=== PATIENT | female | born 1985 | race Caucasian/White ===

== ENCOUNTER 2019-05-02 12:00 | Inpatient (IN) | payer BC ==
[~2019-05-02] VITALS: Ht 170.2 cm; Wt 129.0 kg
--- NOTE | 2019-06-06 13:47 | NUR ---
06/06/19 1347 Sheets,Daisha 1310 PT ARRIVED TO ROOM 105, PT AWAKE AND TALKING TO RN. VSS. PT REPORTS PAIN 3/10 AND TOLERABLE. 1315 BABY TO CHEST AND FBC RN AT BEDSIDE. SMALL CLOTS NOTED WITH FUNDAL MASSAGE. FBC RN AND MD AWARE.
--- NOTE | 2019-06-07 07:38 | OR ---
[facility] [address] [place], [place] [address] Signed DATE OF OPERATION: 06/06/2019 SURGEON: Mendoza Zaragoza MD PREOPERATIVE DIAGNOSIS: Term , previous section. POSTOPERATIVE DIAGNOSIS: Term , previous section. PROCEDURE: Repeat low transverse segment section. Delivery of live female infant. PROVIDER NETWORK ANALYST: Dr. Banegas. ANESTHESIA: Spinal. ESTIMATED BLOOD LOSS: 700 mL. COMPLICATIONS: None. DRAINS: Solorzano to bladder. FINDINGS: Normal uterus. Normal tubes and ovaries bilateral. Normal female . Weight 7 pounds 8 ounces. Apgars 8 and 9. DESCRIPTION OF PROCEDURE: The patient was brought to the operating room and placed in supine position. After adequate spinal anesthesia was obtained, was prepped and draped in usual sterile fashion. Solorzano catheter was placed in the bladder. A Pfannenstiel skin incision was made through previous surgical scar using a scalpel. Subcutaneous tissue was dissected with the Bovie. Any bleeding spots cauterized with the Bovie. The fascia was nicked with scalpel and extended in transverse fashion using curved scissors. The underlying abdominal musculature was bluntly and sharply from the fascia above and below Electronically Signed By: MENDOZA ZARAGOZA MD 06/07/19 0738 PATIENT NAME: LARS HURST OPERATIVE REPORT DATE OF : 87 REPORT #: [id number] PHYSICIAN: MENDOZA ZARAGOZA MD PCP: MENDOZA ZARAGOZA MD REPORT IS CONFIDENTIAL AND NOT TO BE RELEASED WITHOUT AUTHORIZATION [facility] [address] [place], [place] [address] Signed the incision. The abdominal musculature was then bluntly and sharply along the midline. The peritoneum was grasped, hemostats elevated, nicked with a curved scissors, extended in vertical fashion using curved scissors. The Darin self-retaining retractor was inserted into the incision and tightened in place. The lower uterine segment was identified. It was thin and the bladder was noted to be well below the area of dissection. The lower uterine segment was carefully nicked with scalpel and extended in transverse fashion using finger dissection. The infant was noted to be in the vertex BONITA presentation. Infant head was delivered from the incision. The cord was noted to be around the neck three times, individually removed and then the rest of the easily delivered from the incision, and the cord was doubly clamped and cut. The passed off table in good condition to awaiting nurse. The placenta was manually removed. Uterine cavity explored the lap pad to remove any retained membranes. An angle stitch of 0 Monocryl was placed at one end of the incision and a running locking stitch of 0 Monocryl starting at the other end used to close the incision. A 2nd running stitch of 0 Monocryl was used to imbricate the 1st layer. Good hemostasis was noted, but the area did appear to be raw. So, after good irrigation and adequate inspection, the Darin retractor was removed. Gael was sprinkled on the lower uterine segment to help with hemostasis. A sheet of ACell was then placed over the lower uterine segment to help with healing. The anterior wall peritoneum was then closed using running stitch of 2-0 Vicryl suture. The abdominal musculature was reapproximated using interrupted stitches of 0 Vicryl suture. The abdominal wall incision was irrigated, suctioned, examined, and any bleeding spots cauterized with the Bovie. The remaining Gael was sprinkled on the abdominal musculature to help with hemostasis, then sprinkled with powdered A-cell to help with healing. The fascia was then closed using two running stitches of 0 Vicryl suture meeting in the midline. Subcutaneous tissue was irrigated, suctioned, examined, and any bleeding spots cauterized with the Bovie. Subcutaneous tissue was closed using interrupted stitches of 3-0 Vicryl suture and skin reapproximated using skin clips. The patient tolerated the procedure well, went to recovery room in good condition. The sponge, needle, and instrument count correct at the end of procedure. Mendoza Zaragoza MD MJB/MODL /[id number] Electronically Signed By: MENDOZA ZARAGOZA MD 06/07/19 0738 PATIENT NAME: LARS HURST OPERATIVE REPORT DATE OF : 87 REPORT #: [id number] PHYSICIAN: MENDOZA ZARAGOZA MD PCP: MENDOZA ZARAGOZA MD REPORT IS CONFIDENTIAL AND NOT TO BE RELEASED WITHOUT AUTHORIZATION [address] [address] Signed Copies: ~ Electronically Signed By: MENDOZA ZARAGOZA MD 06/07/19 0738 PATIENT NAME: LARS HURST OPERATIVE REPORT DATE OF : 87 REPORT #: [id number] PHYSICIAN: MENDOZA ZARAGOZA MD PCP: MENDOZA ZARAGOZA MD REPORT IS CONFIDENTIAL AND NOT TO BE RELEASED WITHOUT AUTHORIZATION
--- NOTE | 2019-06-07 09:30 | PR ---
[facility] [address] [facility] [place], [place] [address] Signed PP Progress Notes Datetime Report Generated by CPN: 06/07/2019 09:30 SUBJECTIVE: [id number] Pain: Within normal limits Nausea/Vomiting: Denies Vital Signs: [id number] Vital Signs: Reviewed; Within Normal Limits Notable Details: PP Hgb/Hct = 12.3/36.3 EXAM: [id number] Abdomen/Uterus: Normal Lochia: Normal Extremities: Normal Incision: Normal IMPRESSION/PLAN/PROCEDURES: [id number] Impression: Normal progression Plan: Continue present management Procedures: None Progress Notes: Slow but steady vaginal bleeding, decreasing by this morning. Received Methergine and Tranexamic Acid over night. Normal vitals and no anemia. Will continue to follow. Signing Physician: Octavia Corrales MD Copies: ~ *Electronically Signed* 06/07/19929 OCTAVIA CORRALES MD PATIENT NAME: LARS HURST PROGRESS NOTE DATE OF : 87 PHYSICIAN: OCTAVIA CORRALES MD RPT #: [id number] REPORT IS CONFIDENTIAL AND NOT TO BE RELEASED WITHOUT AUTHORIZATION
--- NOTE | 2019-06-08 13:10 | PR ---
[facility] [address] [facility] [place] [address] Signed PP Progress Notes Datetime Report Generated by CPN: 06/08/2019 13:10 SUBJECTIVE: [id number] Pain: Within normal limits Nausea/Vomiting: Denies Vital Signs: [id number] Vital Signs: Reviewed; Within Normal Limits Notable Details: PP Hgb/Hct = 12.3/36.3 EXAM: [id number] Abdomen/Uterus: Normal Lochia: Normal Extremities: Normal Incision: Normal IMPRESSION/PLAN/PROCEDURES: [id number] Impression: Normal progression Plan: Discharge Procedures: None Progress Notes: Doing well, without complaint,ready to go home. Signing Physician: Octavia Corrales MD Copies: ~ *Electronically Signed* 06/08/19 1310 OCTAVIA CORRALES MD PATIENT NAME: LARS HURST PROGRESS NOTE DATE OF : 87 PHYSICIAN: OCTAVIA CORRALES MD RPT #: [id number] REPORT IS CONFIDENTIAL AND NOT TO BE RELEASED WITHOUT AUTHORIZATION
== END 2019-06-08 15:40 | disposition home or self-care (01) | DRG 788 ==
LOC: FBC 06-06 09:54
PROVIDERS: ADMIT General Practice
PROC: 10D00Z1 Extraction of Products of Conception, Low, Open Approach (ICD-10-PCS; principal; 2019-06-06 12:00)
DX: O34.211 Maternal care for low transverse scar from previous cesarean delivery (principal); N85.8 Other specified noninflammatory disorders of uterus; Z37.0 Single live birth; O69.81X0 Labor and delivery complicated by cord around neck, without compression, not applicable or unspecified; O99.214 Obesity complicating childbirth; E66.9 Obesity, unspecified; Z3A.39 39 weeks gestation of pregnancy; Z88.8 Allergy status to other drugs, medicaments and biological substances
CPT/HCPCS: 01961; 36415; 85027; J0690; J1170; J1644; J2274; J2370; J2590; J7120

== ENCOUNTER 2024-10-16 18:39 | Emergency (ER) | payer OTHER ==
[~2024-10-16] VITALS: Ht 170.2 cm; Wt 94.8 kg
[~2024-10-16 18:39] MED LIST: ACETAMINOPHEN500 MG PO; IBUPROFEN600 MG PO; OXYCODON-ACETA1 EAC2 PO
[2024-10-16 20:56] LABS: ALBUMIN 4.5 g/dL (3.4-5.0); ALBUMIN/GLOBULIN RATIO 1.07 (1.1-2.4); ALKALINE PHOSPHATASE 67 U/L (46-116); ALT (SGPT) 26 U/L (14-59); ANION GAP 15.7 (7-21); AST (SGOT) 18 U/L (15-37); BILIRUBIN, TOTAL 0.4 ng/dL (0.2-1.0); BUN/CREATININE RATIO 29.67 (6.0-28.6); CALCIUM 9.1 mg/dL (8.5-10.1); CARBON DIOXIDE 28 mmol/L (21-32); CHLORIDE 102 mmol/L (98-107); CREATININE, SERUM 0.91 mg/dL (0.55-1.02); GLOMERULAR FILTRATION RATE,EST 83 mL/min (>60); MAGNESIUM 2.3 mg/dL (1.8-2.4); POTASSIUM 4.7 mmol/L (3.5-5.1); PROTEIN, TOTAL 8.7 g/dL (6.4-8.2); TSH, 3RD GENERATION 5.156 uIU/mL (0.358-3.740); UREA NITROGEN 27 mg/dL (7-18)
[2024-10-16 21:04] LABS: HEMOGLOBIN 13.1 g/dL (12.0-18.0); PLATELET COUNT 135 K/uL (140-440)
[2024-10-16 21:06] LABS: BASOPHILS 0.7 % (0-2); EOSINOPHILS 2.4 % (0-6); HEMATOCRIT 38.8 % (35.0-50.0); LYMPHOCYTES 34.1 % (24-44); MCHC 33.8 g/dl (30-36); MCV 85.9 fl (81-99); MONOCYTES 8.5 % (0-12); NEUTROPHILS 54.3 % (39-80); RBC 4.52 M/ul (4.3-5.7); RDW 14.4 (10.5-15.0)
[2024-10-16 21:40] VITALS: BP 113/76
--- NOTE | 2024-10-18 20:32 | EKG ---
[facility] [address] [facility] [place], [place] [address] Signed Normal sinus rhythm Possible Left atrial enlargement Prolonged QT Abnormal ECG No previous ECGs available Confirmed by Claudia Ragsdale DO ([id number]) on 10/18/2024 8:32:35 PM Electronically Signed By: CLAUDIA RAGSDALE DO 10/18/242031 PATIENT NAME: LARS HURST Electrocardiogram DATE OF : 87 PHYSICIAN: CLAUDIA RAGSDALE DO REPORT #: [id number] REPORT IS CONFIDENTIAL AND NOT TO BE RELEASED WITHOUT AUTHORIZATION
== END 2024-10-16 21:40 | disposition home or self-care (01) ==
LOC: ED 18:39
PROVIDERS: Internal Medicine
DX: M79.661 Pain in right lower leg (principal); R07.89 Other chest pain; Z88.8 Allergy status to other drugs, medicaments and biological substances
CPT/HCPCS: 36415; 71045; 80053; 83735; 83880; 84443; 84484; 84703; 85025; 85379; 93005; 93010; 99285-25